=== PATIENT | male | born 1970 ===

== ENCOUNTER 2022-10-26 16:10 | Emergency (ER) | payer MEDICARE, MEDICAID ==
[2022-10-26 19:14] LABS: BASOPHILS PERCENT AUTO 0.2 % (0.0-1.5); EOSINOPHILS ABSOLUTE AUTO 0.1 K/uL (0.0-0.7); EOSINOPHILS PERCENT AUTO 0.8 % (0.0-7.0); HEMATOCRIT 41.3 % (38.0-50.0); HEMOGLOBIN 13.6 g/dL (13.0-17.0); LYMPHOCYTES ABSOLUTE AUTO 1.6 K/uL (0.6-2.4); LYMPHOCYTES PERCENT AUTO 27.7 % (16.0-40.0); MEAN CORPUSCULAR HEMOGLOBIN 30.6 pg (27.0-32.0); MEAN CORPUSCULAR HGB CONC 32.9 g/dL (31.0-37.0); MONOCYTES ABSOLUTE AUTO 0.9 K/uL (0.0-0.8); MONOCYTES PERCENT AUTO 14.9 % (0.0-15.0); NEUTROPHILS ABSOLUTE AUTO 3.3 K/uL (1.4-5.7); NEUTROPHILS PERCENT AUTO 56.4 % (48.0-80.0); NRBC ABSOLUTE 0 K/uL; PLATELET COUNT,PLT 141 K/uL (150-400); RED BLOOD CELL COUNT 4.44 M/uL (4.50-5.90); WHITE BLOOD CELL COUNT,WBC 5.89 K/uL (4.0-11.0)
[2022-10-26] MEDS ORDERED: Clindamycin HCl 150 MG Cap PO ONE (19:32)
[2022-10-26 19:58] LABS: A/G RATIO 0.8 (0.9-1.6); ALBUMIN 3.4 g/dL (3.4-5.0); BILIRUBIN TOTAL 0.3 mg/dL (0.2-1.0); CALCIUM 9.1 mg/dL (8.5-10.1); CARBON DIOXIDE,CO2 27.5 mmol/L (21.0-32.0); CREATININE 1.1 mg/dL (0.8-1.3); EST CRCL DRUG DOSING (CG) 77.73 mL/min; PROTEIN TOTAL,TP 7.9 g/dL (6.4-8.2)
== END 2022-10-26 20:15 | disposition home or self-care (01) ==
LOC: MW.ED 16:10
DX: L03.116 Cellulitis of left lower limb (principal)
CPT/HCPCS: 36415; 73620; 80053; 83605; 85025; 87040; 87154; 99283; A9270; 87077; 87186

== ENCOUNTER 2022-10-28 09:48 | Inpatient (IN) | payer MEDICARE, MEDICAID ==
[2022-10-28] MEDS ORDERED: Sodium Chloride 0.9% 10 ML Syringe FLUSH PRN (09:54)
[2022-10-28] MEDS ORDERED: Sodium Chloride 0.9% 2.5 ML Syringe FLUSH PRN (09:54)
[2022-10-28] MEDS ORDERED: Piperacillin/Tazobactam 4.5 GM in Sodium Chloride 0.9% 100 ML IV ONE (10:52)
[2022-10-28 11:08] LABS: BASOPHILS PERCENT AUTO 0.4 % (0.0-1.5); EOSINOPHILS ABSOLUTE AUTO 0.1 K/uL (0.0-0.7); HEMOGLOBIN 13.2 g/dL (13.0-17.0); LYMPHOCYTES ABSOLUTE AUTO 1.4 K/uL (0.6-2.4); LYMPHOCYTES PERCENT AUTO 56.9 % (16.0-40.0); MEAN CORPUSCULAR HEMOGLOBIN 30.3 pg (27.0-32.0); MEAN CORPUSCULAR HGB CONC 32.2 g/dL (31.0-37.0); MEAN CORPUSCULAR VOLUME 94.3 fL (80.0-98.0); MONOCYTES ABSOLUTE AUTO 0.4 K/uL (0.0-0.8); MONOCYTES PERCENT AUTO 15.8 % (0.0-15.0); NEUTROPHILS ABSOLUTE AUTO 0.6 K/uL (1.4-5.7); NEUTROPHILS PERCENT AUTO 24.9 % (48.0-80.0); NRBC ABSOLUTE 0 K/uL; PLATELET COUNT,PLT 174 K/uL (150-400); RED BLOOD CELL COUNT 4.35 M/uL (4.50-5.90); WHITE BLOOD CELL COUNT,WBC 2.53 K/uL (4.0-11.0)
[2022-10-28 11:20] LABS: INR 0.96 (0.86-1.11)
[2022-10-28 11:34] LABS: A/G RATIO 0.9 (0.9-1.6); ALANINE AMINOTRANSFERASE,ALT 16 IU/L (14-63); ALBUMIN 3.4 g/dL (3.4-5.0); ALKALINE PHOSPHATASE 57 U/L (46-116); ASPARTATE AMNIOTRANSFERASE,AST 14 IU/L (15-37); BILIRUBIN TOTAL 0.3 mg/dL (0.2-1.0); BLOOD UREA NITROGEN,BUN 13 mg/dL (7.0-18.0); CALCIUM 9.2 mg/dL (8.5-10.1); CARBON DIOXIDE,CO2 29.1 mmol/L (21.0-32.0); CHLORIDE,CL 107 mmol/L (98-107); GLUCOSE RANDOM 90 mg/dL (74-106); POTASSIUM,K 4.5 mmol/L (3.5-5.1); PROTEIN TOTAL,TP 7.4 g/dL (6.4-8.2); SODIUM,NA 144 mmol/L (136-148)
[2022-10-28 11:41] LABS: ESTIMATED GFR 92 mL/min (>60)
[2022-10-28 11:46] LABS: LACTIC ACID 1.4 mmol/L (0.4-2.0)
[2022-10-28] MEDS: Lactated Ringers 1,000 ML IV SCH (18:14)
[2022-10-28] MEDS: Piperacillin/Tazobactam 4.5 GM in Sodium Chloride 0.9% 100 ML IV SCH (18:14)
[2022-10-28] MEDS: Enoxaparin 40 MG/0.4 ML Syringe SUBCUT SCH (18:14)
[2022-10-28] MEDS: Divalproex Sodium Delayed-Release 500 MG Tab.CR PO SCH (21:35)
[2022-10-29 00:04] LABS: APPEARANCE,URINE CLEAR; BILIRUBIN,URINE NEGATIVE (NEGATIVE); COLOR,URINE YELLOW; GLUCOSE,URINE NEGATIVE (NEGATIVE); KETONES,URINE NEGATIVE (NEGATIVE); LEUKOCYTE ESTERASE,URINE NEGATIVE (NEGATIVE); NITRITE,URINE NEGATIVE (NEGATIVE); OCCULT BLOOD,URINE NEGATIVE (NEGATIVE); PH,URINE 6.5 (5.0-8.0); PROTEIN,URINE NEGATIVE (NEGATIVE); UROBILINOGEN,URINE 0.2 EU/dL (<2.0)
[2022-10-29] MEDS: Piperacillin/Tazobactam 4.5 GM in Sodium Chloride 0.9% 100 ML IV SCH ×3 (03:40→18:43)
[2022-10-29] MEDS: Lactated Ringers 1,000 ML IV SCH (04:35)
[2022-10-29 06:37] LABS: BASOPHILS PERCENT AUTO 0.3 % (0.0-1.5); EOSINOPHILS ABSOLUTE AUTO 0.1 K/uL (0.0-0.7); EOSINOPHILS PERCENT AUTO 2.7 % (0.0-7.0); HEMATOCRIT 35.2 % (38.0-50.0); HEMOGLOBIN 11.4 g/dL (13.0-17.0); LYMPHOCYTES ABSOLUTE AUTO 1.9 K/uL (0.6-2.4); LYMPHOCYTES PERCENT AUTO 56.2 % (16.0-40.0); MEAN CORPUSCULAR HEMOGLOBIN 30.2 pg (27.0-32.0); MEAN CORPUSCULAR HGB CONC 32.4 g/dL (31.0-37.0); MEAN CORPUSCULAR VOLUME 93.1 fL (80.0-98.0); MONOCYTES ABSOLUTE AUTO 0.4 K/uL (0.0-0.8); MONOCYTES PERCENT AUTO 12.2 % (0.0-15.0); NEUTROPHILS ABSOLUTE AUTO 0.9 K/uL (1.4-5.7); NEUTROPHILS PERCENT AUTO 28.6 % (48.0-80.0); NRBC ABSOLUTE 0 K/uL; PLATELET COUNT,PLT 162 K/uL (150-400); RED BLOOD CELL COUNT 3.78 M/uL (4.50-5.90); WHITE BLOOD CELL COUNT,WBC 3.29 K/uL (4.0-11.0)
[2022-10-29 07:02] LABS: A/G RATIO 0.8 (0.9-1.6); ALBUMIN 2.6 g/dL (3.4-5.0); BILIRUBIN TOTAL 0.3 mg/dL (0.2-1.0); CALCIUM 8.4 mg/dL (8.5-10.1); CARBON DIOXIDE,CO2 29.9 mmol/L (21.0-32.0); CREATININE 1.1 mg/dL (0.8-1.3); EST CRCL DRUG DOSING (CG) 75.11 mL/min
[2022-10-29] MEDS: Sertraline 100 MG Tab PO SCH (10:05)
[2022-10-29] MEDS: Divalproex Sodium Delayed-Release 500 MG Tab.CR PO SCH ×2 (10:05→20:34)
[2022-10-29] MEDS ORDERED: Docusate Sodium 100 MG Cap PO PRN (11:12)
[2022-10-29] MEDS ORDERED: Ondansetron 4 MG/2 ML SDV IVPUSH PRN (11:12)
[2022-10-29] MEDS ORDERED: Sodium Chloride 0.9% 10 ML Syringe FLUSH PRN (11:12)
[2022-10-29] MEDS ORDERED: Acetaminophen 325 MG Tab PO PRN (11:12)
[2022-10-29] MEDS ORDERED: Sodium Chloride 0.9% 2.5 ML Syringe FLUSH PRN (11:12)
[2022-10-29] MEDS ORDERED: Gadobenate Dimeglumine 529 MG/ML 20 ML SDV IVPUSH STA (15:48)
[2022-10-29] MEDS: Enoxaparin 40 MG/0.4 ML Syringe SUBCUT SCH (17:24)
[2022-10-30] MEDS: Piperacillin/Tazobactam 4.5 GM in Sodium Chloride 0.9% 100 ML IV SCH ×2 (02:55→11:10)
[2022-10-30 06:33] LABS: BASOPHILS PERCENT AUTO 0.3 % (0.0-1.5); EOSINOPHILS ABSOLUTE AUTO 0.1 K/uL (0.0-0.7); EOSINOPHILS PERCENT AUTO 2.7 % (0.0-7.0); HEMATOCRIT 37.1 % (38.0-50.0); LYMPHOCYTES ABSOLUTE AUTO 1.6 K/uL (0.6-2.4); LYMPHOCYTES PERCENT AUTO 46.8 % (16.0-40.0); MEAN CORPUSCULAR HEMOGLOBIN 30.2 pg (27.0-32.0); MEAN CORPUSCULAR HGB CONC 32.3 g/dL (31.0-37.0); MEAN CORPUSCULAR VOLUME 93.5 fL (80.0-98.0); MONOCYTES ABSOLUTE AUTO 0.5 K/uL (0.0-0.8); MONOCYTES PERCENT AUTO 14.5 % (0.0-15.0); NEUTROPHILS ABSOLUTE AUTO 1.2 K/uL (1.4-5.7); NEUTROPHILS PERCENT AUTO 35.7 % (48.0-80.0); NRBC ABSOLUTE 0 K/uL; PLATELET COUNT,PLT 182 K/uL (150-400); RED BLOOD CELL COUNT 3.97 M/uL (4.50-5.90); WHITE BLOOD CELL COUNT,WBC 3.31 K/uL (4.0-11.0)
[2022-10-30 06:57] LABS: CALCIUM 8.5 mg/dL (8.5-10.1); CREATININE 1.2 mg/dL (0.8-1.3); EST CRCL DRUG DOSING (CG) 68.85 mL/min; MAGNESIUM 2.1 mg/dL (1.8-2.4); POTASSIUM,K 3.9 mmol/L (3.5-5.1)
[2022-10-30] MEDS: Sertraline 100 MG Tab PO SCH (09:54)
[2022-10-30] MEDS: Divalproex Sodium Delayed-Release 500 MG Tab.CR PO SCH (09:54)
== END 2022-10-30 11:56 | DRG 603 ==
LOC: MW.ED 09:48 → MW.MS 11:10
PROVIDERS: ADMIT Internal Medicine; ATTEND Internal Medicine
DX: L03.116 Cellulitis of left lower limb (principal); G80.9 Cerebral palsy, unspecified; F81.9 Developmental disorder of scholastic skills, unspecified; B96.89 Other specified bacterial agents as the cause of diseases classified elsewhere; G40.909 Epilepsy, unspecified, not intractable, without status epilepticus; L97.529 Non-pressure chronic ulcer of other part of left foot with unspecified severity; F79 Unspecified intellectual disabilities; Z79.899 Other long term (current) drug therapy
CPT/HCPCS: 36415; 70450; 70450-26; 71046; 71046-26; 73720-26-LT; 73720-LT; 80048; 80053; 80202; 81003; 83605; 83735; 85025; 85610; 87040; 93005; 93010; 99222; 99232; 99238; 99291; A9270-GY; A9577; J1650; J2543; J3370; J3490; J7050; J7120

== ENCOUNTER 2023-03-05 10:06 | Day surgery (SDC) | payer MEDICARE, MEDICAID ==
[~2023-03-05 10:06] MED LIST: Lactated Ringers 1,000 ML IV SCH
[2023-03-05] MEDS ORDERED: propofoL 50 ML ONE (10:25)
== END 2023-03-05 12:53 | disposition home or self-care (01) ==
LOC: MW.SDS 10:06
PROVIDERS: ATTEND Surgery
DX: Z12.11 Encounter for screening for malignant neoplasm of colon (principal); D12.0 Benign neoplasm of cecum; D12.6 Benign neoplasm of colon, unspecified; K64.8 Other hemorrhoids; F32.A Depression, unspecified; Z79.899 Other long term (current) drug therapy
CPT/HCPCS: 45380; J2704; J7120; 00811